=== PATIENT | female | born 1995 | race Caucasian/White ===

== ENCOUNTER → 2016-11-03 | Outpatient (CLI) | payer BC ==
[~2016-11-03] MED LIST: ASCO1CAP3 PO; DIVA500T5 PO; DOCU-94 PO; FERR325T5 PO; LXP10 PO; NORGTAB3 PO; OMEG10007 PO; [UNRECOGNIZED DRUG - CODE] PO
[2016-11-03 15:52] LABS: BASO % 0.3 %; BASO ABS # 0.02 K/uL (0-0.2); COMPLETE YES; EOS % 2.4 %; HEMATOCRIT 37.2 % (37-47); IG% 0.3 %; LYMPH % 29.2 %; MEAN CORPUSCULAR HEMOGLOBIN 31.6 pg (25-34); MEAN CORPUSCULAR HGB CONC 35.5 g/dl (32-36); MEAN PLATELET VOLUME 10.7 fL (7.4-10.4); MONO % 7.3 %; NEUT % 60.5 %; PLATELET COUNT 202 K/uL (130-400); RED BLOOD COUNT 4.18 M/uL (4.2-5.4); WHITE BLOOD COUNT 7.53 K/uL (4.8-10.8)
[2016-11-03 16:47] LABS: FERRITIN 179.4 ng/ml (8.0-388.0)
== END | disposition home or self-care (01) ==
LOC: C.LAB 15:01
DX: E61.1 Iron deficiency (principal); R53.83 Other fatigue

== ENCOUNTER → 2017-04-05 | Outpatient (CLI) | payer BC | END | disposition home or self-care (01) | LOC: C.PAPS 08:46 | PROVIDERS: ATTEND Obstetrics & Gynecology | DX: Z01.419 Encounter for gynecological examination (general) (routine) without abnormal findings (principal) ==

== ENCOUNTER → 2017-04-05 | Outpatient (CLI) | payer BC ==
[2017-04-09 11:34] LABS: CHLAMYDIA TRACH RNA*** NOT DETECTED (NOT DETECTED); GC (NEIS GONORRHOEAE)RNA** NOT DETECTED (NOT DETECTED)
== END | disposition home or self-care (01) ==
LOC: C.LABSPEC 17:56
PROVIDERS: ATTEND Obstetrics & Gynecology
DX: Z01.419 Encounter for gynecological examination (general) (routine) without abnormal findings (principal)

== ENCOUNTER 2017-04-10 14:12 | Emergency (ER) | payer BC ==
[~2017-04-10] VITALS: Ht 170.2 cm; Wt 63.8 kg
[~2017-04-10 14:12] MED LIST changes: -DIVA500T5 PO; -LXP10 PO; -OMEG10007 PO
[2017-04-10 14:33] VITALS: TEMP 36.5; Ht 170.2 cm; Wt 63.8 kg
[2017-04-10] MEDS ORDERED: DIVA500T5 PO (15:02)
[2017-04-10] MEDS ORDERED: NORGTAB3 PO (15:02)
[2017-04-10] MEDS ORDERED: LXP10 PO (15:02)
--- NOTE | 2017-04-10 15:07 | EMERGENCY ROOM VISIT NOTE ---
History First contact with patient: 14:49 Chief Complaint: HEAD PAIN Stated Complaint: HEAD THROBBING, NECK PAIN History of Present Illness The patient is a 21 year old female who presents to the Emergency Room via private vehicle with complaints of "head throbbing, neck pain". The patient states at 1.5 hours [employer] she was playing a pickup game of soccer, when another player knocked her down. She states that it happened so fast that she fell to the ground striking her head. This was against the turf. She was unable to break her fall. She now complains of right frontal head pain, as well as right- sided neck pain. She rates her current pain as a 2-3/10. She has a history of concussion and notes this feels similar. She denies any nausea, vomiting, light sensitivity, alleviating or exacerbating factors. She denies any midline C-spine tenderness. She denies any numbness or tingling in the upper extremities. Review of Systems A complete 6-point Review of Systems was discussed with the patient, with pertinent positives and negatives listed in the History of Present Illness. All remaining Review of Systems questions can be considered negative unless otherwise specified. Past Medical/Surgical History Medical Problems: (1) Bronchitis (2) Stomach problems Family History Diabetes mellitus Heart disease Hypertension Social History Smoking Status: Never Smoker Alcohol Use: none Housing Status: lives with family Occupation Status: employed Current/Historical Medications Scheduled Alosetron Hcl (Lotronex), 0.5 MG PO DAILY Divalproex Sodium (Depakote Delay Rel), 500 MG PO DAILY Escitalopram Oxalate (Escitalopram Oxalate), 10 MG PO DAILY Norgestimate-Ethinyl Estradiol (Tri-Sprintec), 1 TAB PO DAILY Physical Exam Vital Signs Date Time Temp Pulse Resp B/P (MAP) Pulse Ox O2 Delivery O2 Flow Rate FiO2 04/10/17 14:33 36.5 97 20 127/80 98 Room Air Physical Exam VITAL SIGNS - Vital signs and nursing notes were reviewed. Afebrile, normotensive, non-tachycardic and saturating well on room air 98%. GENERAL -21-year-old female appearing her stated age. Communicates well with provider and answers questions appropriately. SKIN - Gross examination of the entire body surface demonstrates no lacerations to the body surface. HEAD - Normocephalic, Atraumatic. No Lynn's Sign or Raccoon's Eyes. No depressed skull fractures palpable. EYES - PERRL with EOMI bilaterally. Without subconjunctival hemorrhage. No hyphema. EARS - No deformities of external structures noted on gross examination bilaterally. No hemotympanum present. No tympanic perforation noted. Handle of malleus, umbo, cone of light, pars tensa/flaccid all easily visualized. NOSE - Midline and without cyanosis. No epistaxis or clear watery discharge noted. Septum midline without deviation. No septal hematoma noted. No overlying ecchymosis noted. MOUTH/OROPHARYNX - Without perioral cyanosis. Tongue midline with equal elevation of palate bilaterally. No blood noted in the oropharynx. No tonsillar hypertrophy, erythema, or exudates noted. No dental fractures noted. NECK -no tenderness to palpation over the cervical spinous processes. There is right sided cervical paraspinal muscle tenderness noted. LUNGS - Chest wall symmetric without accessory muscle use, intercostals retractions, or central cyanosis. No flail chest or depressed fractures noted. No paradoxical chest wall movements noted. No tenderness to palpation across the anterior and posterior chest chopra. No tenderness with deep inspiration noted against the examiner's applied pressure to the lateral chest chopra. Normal vesicular breath sounds CTA B/L. No wheezes, rales, or rhonchi appreciated. CARDIAC - RRR with S1/S2. No murmur, rubs, or gallops appreciated. EXTREMITIES - No gross deformities noted of the extremities. No tenderness to palpation of the extremities. +5/5 strength noted in UE/LE bilaterally. NEUROLOGIC - Cranial nerves II through XII grossly intact. Sensory intact to light touch throughout. Patellar reflexes +2/4. PSYCH - A&Ox3 and cooperates fully with examiner. Pt is very pleasant and interacts well with examiner. Medical Decision & Procedures Medical Decision Patient was seen and evaluated as above. She presents to us today with head pain and neck pain. There is no C-spine tenderness. There is no evidence of neurovascular deficit. Upon my examination there are no neurovascular deficits. I suspect she is expressing a mild concussion, and discussed benefit versus risk of obtaining a CT scan of the patient's head and neck. She respectfully declined, after discussing benefits versus risk. She indicated that she would return here with worsening symptoms. I do believe this is reasonable. I suspect that the risk of radiation outweighs the benefit. She this time appears stable for outpatient management, and was instructed upon management. She was educated upon worrisome symptoms which to return, had questions about this, and was discharged home in good condition. In the evaluation and treatment of this patient, the following differential diagnoses were considered: Concussion, Contrecoup Injury, Brain Tumor, Depression, Encephalitis, Hypothyroidism, Meningitis, CVA, TIA, Migraine, Cluster Headache, Intracranial Abnormality, Intracranial Hemorrhage, Subdural Hematoma, Subarachnoid Hemorrhage, Hydrocephalus. Impression Primary Impression: Head injury Additional Impressions: Concussion Cervical muscle strain Departure Information Dispostion Home / Self-Care Condition GOOD Referrals Salvatore Huntley Jr,D.O. (PCP) Patient Instructions ED Concussion, My [facility] Additional Instructions You have been treated in the Emergency Department for a Closed Head Injury. For pain control, you can use the following ivps-swu-egurfsq medicines (if >12 yo): - Regular strength (325mg/tab) Tylenol (acetaminophen) 2 tabs every 4-6 hours as needed. Do not exceed 12 tablets in a 24 hour period. Avoid taking more than 3 grams (3000 mg) of Tylenol per day. This includes any other sources of acetaminophen you may take on a regular basis. - Regular strength (200 mg/tab) Advil (ibuprofen) 1-2 tabs every 4-6 hours as needed. Do not exceed a dose of 3200 mg per day. You should relax in a quiet, dark place for the rest of the day. Avoid any possible triggers including: cigarette smoke, caffeine, nicotine, chocolate, wine, beer, loud noises or music, or bright lights. You should schedule a follow-up appointment in 2-3 days with your Primary Care Provider or established Neurologist for further evaluation and treatment of your Headache. You should NOT return to athletic play until reevaluated by your In Home Sales Representative. You should fully comply with their standard protocol regarding head injuries. Your In Home Sales Representative OR Primary Care Provider will have the final say in your return to athletic play. This timeframe should be AT LEAST 1 week AFTER the date of last symptoms experienced! This is ESSENTIAL to allow for adequate brain healing time and for reduced risk of re-injury. Return to the Emergency Department if your current symptoms worsen despite treatment course outlined above, or if you develop any of the following symptoms : intractable pain despite aforementioned treatment course, visual disturbances , loss of vision, unilateral weakness or facial drooping, slurring of speech, loss of coordination, or loss of consciousness. Please return with any new/concerning symptoms. Problem Qualifiers
[2017-04-10] MEDS ORDERED: OMEG10007 PO (15:13)
[2017-04-10 15:14] VITALS: BP 111/80; PULSE 85; O2SAT 100
== END 2017-04-10 15:15 | disposition home or self-care (01) ==
LOC: C.EDB 14:13 → C.EDD 15:15
DX: S06.0X9A Concussion with loss of consciousness of unspecified duration, initial encounter (principal); S16.1XXA Strain of muscle, fascia and tendon at neck level, initial encounter; W03.XXXA Other fall on same level due to collision with another person, initial encounter; Y93.66 Activity, soccer; Z79.899 Other long term (current) drug therapy; Z87.09 Personal history of other diseases of the respiratory system; Z87.19 Personal history of other diseases of the digestive system; Z87.828 Personal history of other (healed) physical injury and trauma; Z82.49 Family history of ischemic heart disease and other diseases of the circulatory system; Z83.3 Family history of diabetes mellitus

== ENCOUNTER → 2017-05-09 | Outpatient (CLI) | payer BC ==
[~2017-05-09] MED LIST changes: -ASCO1CAP3 PO; +DIVA500T5 PO; -DOCU-94 PO; -FERR325T5 PO; +LXP10 PO; +OMEG10007 PO
[2017-05-09 17:53] LABS: HEMATOCRIT 37.2 % (37-47); MEAN CELL VOLUME 89.6 fL (80-100); MEAN CORPUSCULAR HGB CONC 35.8 g/dl (32-36); MEAN PLATELET VOLUME 11.3 fL (7.4-10.4); PLATELET COUNT 178 K/uL (130-400); RED BLOOD COUNT 4.15 M/uL (4.2-5.4); WHITE BLOOD COUNT 6.64 K/uL (4.8-10.8)
[2017-05-09 18:19] LABS: FERRITIN 176.3 ng/ml (8.0-388.0)
== END | disposition home or self-care (01) ==
LOC: C.LAB 16:43
DX: E61.1 Iron deficiency (principal)

== ENCOUNTER → 2017-07-23 | Outpatient (CLI) | payer BC ==
[~2017-07-23] MED LIST changes: +ALOS0.5T PO; -[UNRECOGNIZED DRUG - CODE] PO
[2017-07-23 12:36] LABS: FERRITIN 213.6 ng/ml (8.0-388.0)
== END | disposition home or self-care (01) ==
LOC: C.LAB 11:33
DX: E61.1 Iron deficiency (principal); R51 Headache